=== PATIENT | female | born 1995 | race Caucasian/White ===

== ENCOUNTER 2024-12-27 12:08 | Emergency (ER) | payer OTHER, SELFPAY ==
[2024-12-27 12:14] VITALS: BP 120/80
--- NOTE | 2024-12-27 13:27 | ED.GENMED ---
History of Present Illness
<James Torre MD - Last Filed: 12/27/24 15:06>
General
Chief Complaint: Visual Problem
Time Seen by Provider: 12/27/24 12:51
<Abby Salaazr MD, Resident - Last Filed: 12/27/24 15:26>
General
Source: patient
History of Present Illness
History of Present Illness:
29-year-old female past medical history of ocular migraines presents to the ER with 3 days of blurry vision in right eye. She went to urgent care for evaluation and they recommended for her to come to the ER. She does not feel like she needs to be
in the ER however came in anyway because she did not want to be 'irresponsible.' Typically when she has a migraine, she notices loss of right eye peripheral vision first, followed by significant headache that resolves within 12 hours that usually
clears. This time, her symptoms have been occurring for 3 days with complete right sided blurry vision which is atypical for her. She does have intermittent left-sided blurry vision. She denies any numbness, tingling, changes in speech, weakness
elsewhere in her body. She does endorse some nasal congestion and suspects she may be starting to have a sinus infection which could be contributing to her migraine. She does have continuation of her headache. She has tried Excedrin which has not
helped. She is not on any other medication for migraine. She does endorse some nausea and vomiting however that is typical with her migraines. She denies any fevers, chills, chest pain, heart palpitations, shortness of breath, diarrhea.
Past History
<Abby Salazar MD, Resident - Last Filed: 12/27/24 15:26>
Past History
ED Past Medical History: Other (Ocular migraines, substance use disorder sober for 2 years, interstitial cystitis, concussions)
ED Past Surgical History: None
Social History
Tobacco: Vaping
Alcohol: None
Drug: Former user
Living: with roommate
Employment: Employed
Family History
Family History: Other (Brother with autoimmune RA )
Review of Systems
<Abby Salazar MD, Resident - Last Filed: 12/27/24 15:26>
Review of Systems
Allergies reviewed?: Yes
Constitutional: Reports no symptoms
EENT: Reports runny nose and other (Burry vision)
Respiratory: Reports no symptoms
Cardiac: Reports no symptoms
ABD/GI: Reports nausea and vomiting
: Reports no symptoms
Musculoskeletal: Reports no symptoms
Skin: Reports no symptoms
Neurological: Reports headache
Endocrine: Reports no symptoms
Hematologic/Lymphatic: Reports no symptoms
Psychiatric: Reports no symptoms
Phy Exam
<Abby Salazar MD, Resident - Last Filed: 12/27/24 15:26>
Physical Exam
Physical Exam:
General: Well-appearing, sitting up in bed, conversant
Head: Atraumatic
Eyes: Sluggish reaction of bilateral eyes to light however both round and constricting. At 10 feet with glasses, bilateral eyes 10/15, left eye 10/12m right eye 10/15
ENT: Normal TM, no pharyngeal erythema, no cervical lymphadenopathy, no inflamed nasal turbinates
Cardiac: Regular S1, S2, no murmurs
Respiratory: Clear breath sounds bilaterally
Abdomen: Soft, nontender, nondistended, normal bowel sounds
Extremities: No peripheral edema
Neurological: Cranial nerves II through XII intact, bilateral upper and lower mental shoulder strength 5 out of 5, Proprioception intact
Course
<James Torre MD - Last Filed: 12/27/24 15:06>
Orders/Labs/Results
Orders:
Orders
12/27/24 13:26
Diphenhydramine [Benadryl] 25 mg IV NOW STA
Ketorolac [Toradol] 15 mg IV NOW STA
Metoclopramide [Reglan] 10 mg IV NOW STA
Vital Signs
Initial and Last Documented VS:
Initial Vital Signs
Temp Pulse Resp BP Pulse Ox
98.3 F 95 16 120/80 100
12/27/24 12:14 12/27/24 12:14 12/27/24 12:14 12/27/24 12:14 12/27/24 12:14
Last Documented Vital Signs
Temp Pulse Resp BP Pulse Ox
98.3 F 95 16 110/67 100
12/27/24 12:14 12/27/24 12:14 12/27/24 12:14 12/27/24 13:55 12/27/24 13:32
<Abby Salazar MD, Resident - Last Filed: 12/27/24 15:26>
Orders/Labs/Results
Orders:
Orders
12/27/24 13:26
Diphenhydramine [Benadryl] 25 mg IV NOW STA
Ketorolac [Toradol] 15 mg IV NOW STA
Metoclopramide [Reglan] 10 mg IV NOW STA
Vital Signs
Initial and Last Documented VS:
Initial Vital Signs
Temp Pulse Resp BP Pulse Ox
98.3 F 95 16 120/80 100
12/27/24 12:14 12/27/24 12:14 12/27/24 12:14 12/27/24 12:14 12/27/24 12:14
Last Documented Vital Signs
Temp Pulse Resp BP Pulse Ox
98.3 F 95 16 110/67 100
12/27/24 12:14 12/27/24 12:14 12/27/24 12:14 12/27/24 13:55 12/27/24 13:32
<Abby Salazar MD, Resident - Last Filed: 12/27/24 15:26>
MDM/Problems Addressed
Differential Diagnosis Includes:
Ocular migraine, venous thrombosis, vasculitis, trauma,
MDM/Problems Addressed:
Assessment: 29-year-old female with history of ocular migraines presented to the ER with 3 days of migraine with persistent right eye blurry vision.
This is likely a continuation of her ocular migraine. Patient is in agreement however at urgent care because they stated that she was would be irresponsible if she did not come to the ER for further evaluation, she came in. Considering she has no
significant past medical history increasing her risk for CVA or venous thrombosis, with shared decision making she opted not to do a CTA. Patient was given migraine cocktail and she found significant improvement with symptoms and would now like to
go home.
Visual acuity at 10 feet with glasses on revealed bilateral eyes 10/15, left eye 10/12 and right eye 10/15 which is not significantly different from left.
Discharge with instructions to follow-up with outpatient ophthalmology or neurology if symptoms continue.
<James Torre MD - Last Filed: 12/27/24 15:06>
*Pulse Oximetry
SaO2: 100
Oxygen Mode of Delivery: Room air
<Abby Salazar MD, Resident - Last Filed: 12/27/24 15:26>
*Pulse Oximetry
Patient hypoxic: no
*Critical Care Note
Total Time (30-74mins, 75-104mins- exclusive of procedures): Not Applicable
Data Reviewed
Source: patient
ED Attending Note
<James Torre MD - Last Filed: 12/27/24 15:06>
ED Attending Note
Patient seen and examined by attending physician: Yes
I performed a history and physical exam of patient and discussed management with resident, I reviewed resident's note and agree with documented findings and plan of care.: Yes
ED Attending Note:
I have seen and evaluated the patient with a [id number] encounter. I have spoken to the [resident] and involved in the medical history, the physical exam, medical decision making.
Evaluation and management service: agree unless noted differently below.
Results interpretation: agree unless noted differently below.
Patient is a 29-year-old woman history of migraine presenting to the emergency department with a headache. Patient normally gets ocular migraines. They usually start on the right side. First she gets vision problems where her right eye peripheral
vision becomes blurry and then developed a right-sided headache. She then got some nausea and that symptoms usually resolve after 12 hours. This headache has been persistent for 3 days now. She does state that her entire right eye is more blurry
instead of just the periphery. She states otherwise the characteristic of the headache is the exact same. She does state that yesterday she did have an episode where she completely lost her vision though that resolved. She did take an Excedrin
with no relief. She does not currently see neurology. She is not on any antiabortive treatments. No history of OCP or history of PE or family history of PE.
GENERAL: in no acute distress
HEENT: normocephalic, extraocular movements intact, pupils equal and reactive bilaterally moist oral mucosa, visual acuity grossly intact
NECK: normal inspection
RESPIRATORY: no respiratory distress, clear to auscultation bilaterally
CARDIOVASCULAR: regular rate and rhythm
ABDOMEN/: soft, non-distended, non-tender to palpation, no rebound or guarding
EXTREMITIES: non-tender, no edema/swelling
NEUROLOGIC: awake and alert, moves all extremities, equal strength in upper and lower extremities, normal sensation, normal [id number]
SKIN: warm
29-year-old woman history of ocular migraines presenting to the emergency department with a migraine at similar though the duration of this migraine is slightly longer. Not worst headache of her life. No neurodeficits. No fevers chills. No other
red flag symptoms. On arrival vitals and exam is reassuring. After shared decision making we will treat with migraine cocktail. I did offer CT scan though patient declines at this time. Official visual acuity is similar in both eyes.
On revaluation headache is drastically improved. patient requesting discharge which is appropriate. strict return precautions given.
-
Portions of this chart may have been created with voice recognition software.� Occasional wrong word or��sound alike� substitutions may have occurred due to the inherent limitations of voice recognition software.
Discharge Plan
Departure
Patient Disposition: Home (Routine Discharge)
Date of Disposition: 12/27/24
Time of Disposition: 14:51
Patient with high blood pressure during this ER visit?: No
Discharge Problem:
Ocular migraine
Instructions: Migraines (DC), Headache, Adult (DC)
Referrals:
NONE,* [Family Provider, Internal Medicine]
Activity Restrictions/Additional Instructions:
Please follow up with ophthalmology and/or neurology if visual disturbances persist.
Interventions
Interventions:
*Risk Screen - Suicide Last Done: 12/27/24 12:14
*General Assessment Last Done: 12/27/24 13:52
*Neglect/Abuse Screening Last Done: 12/27/24 12:14
*ED- Fall Risk Assessment Last Done: 12/27/24 13:52
*ED COVID-19 Vaccine History Last Done: 12/27/24 13:52
*ED Influenza Vaccine History Last Done: 12/27/24 13:52
ED- Neurological Assessment Last Done: 12/27/24 13:53
ED-EENT Assessment Last Done: 12/27/24 13:53
ED Swallowing Screen Last Done: 12/27/24 13:54
Discharge Date and Time
Print Language: [facility]
[2024-12-27] MEDS: REGLAN 10 MG IV (13:47)
[2024-12-27] MEDS: TORADOL 15 MG IV (13:47)
[2024-12-27] MEDS: BENADRYL 25 MG IV (13:48)
[2024-12-27 13:52] VITALS: BMI 32.3
[2024-12-27 13:55] VITALS: BP 110/67
== END 2024-12-27 15:13 | disposition home or self-care (01) ==
LOC: EMR 12:08
PROVIDERS: EMERGENCY PHYSICIAN Student in an Organized Health Care Education/Training Program
DX: G43.109 Migraine with aura, not intractable, without status migrainosus (principal); N30.10 Interstitial cystitis (chronic) without hematuria; F17.290 Nicotine dependence, other tobacco product, uncomplicated; Z87.820 Personal history of traumatic brain injury
CPT/HCPCS: 99284; 96374; 96375 ×2